=== PATIENT | male | born 1960 | race Caucasian/White ===

== ENCOUNTER → 2017-03-07 | Outpatient (CLI) | payer OTHER ==
[2017-03-07 17:43] LABS: MEAN CORPUSCULAR HEMOGLOBIN 29.9 pg (25-34); MEAN CORPUSCULAR HGB CONC 33.6 g/dl (32-36); MEAN PLATELET VOLUME 10.4 fL (7.4-10.4); PLATELET COUNT 185 K/uL (130-400); RED BLOOD COUNT 4.72 M/uL (4.7-6.1); WHITE BLOOD COUNT 5.61 K/uL (4.8-10.8)
[2017-03-07 18:11] LABS: BLOOD UREA NITROGEN 16 mg/dl (7-18); BUN/CREATININE RATIO 14.9 (10-20); CALCIUM 8.9 mg/dl (8.5-10.1); CARBON DIOXIDE 26 mmol/L (21-32); CHLORIDE 105 mmol/L (98-107); GLUCOSE 100 mg/dl (70-99); POTASSIUM 3.7 mmol/L (3.5-5.1); SODIUM 140 mmol/L (136-145)
== END | disposition home or self-care (01) ==
LOC: C.LABMFLN 15:52
PROVIDERS: ATTEND Family Medicine
DX: Z00.00 Encounter for general adult medical examination without abnormal findings (principal); D68.2 Hereditary deficiency of other clotting factors; I10 Essential (primary) hypertension; R73.01 Impaired fasting glucose; Z12.5 Encounter for screening for malignant neoplasm of prostate; Z11.59 Encounter for screening for other viral diseases

== ENCOUNTER → 2017-10-31 | Outpatient (CLI) | payer OTHER ==
[2017-10-31 18:16] LABS: INR 1.8 (0.9-1.1)
== END | disposition home or self-care (01) ==
LOC: C.LABMFLN 13:47
PROVIDERS: ATTEND Family Medicine
DX: I80.3 Phlebitis and thrombophlebitis of lower extremities, unspecified (principal); D68.2 Hereditary deficiency of other clotting factors